=== PATIENT | male | born 1990 | race Caucasian/White ===

== ENCOUNTER 2021-03-23 03:53 | Emergency (ER) | payer OTHER ==
[2021-03-23 04:01] VITALS: RESP 18
[2021-03-23] MEDS ORDERED: SODIUM CHLORIDE 0.9% 1,000 ML IV STA (04:11)
[2021-03-23] MEDS ORDERED: DEXAMETHASONE SOD PHOSPHATE 10 MG/ML 1 ML VIAL IVP STA (04:12)
[2021-03-23] MEDS ORDERED: IPRATROPIUM-ALBUTEROL 3 ML NEB INHALATION STA (04:12)
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
--- NOTE | 2021-03-23 04:48 | XR ---
EXAMINATION TYPE: XR chest 1V DATE OF EXAM: 03/23/2021 COMPARISON: 02/23/2019 HISTORY: Cough TECHNIQUE: Single view FINDINGS: Heart and mediastinum are normal. Lungs are clear. Diaphragm is normal. Bony thorax appears normal. IMPRESSION: Normal chest. No change.
[2021-03-23 05:58] VITALS: BP 119/76; PULSE 72; TEMP 98.3
[2021-03-23 13:54] LABS: VBG PH 7.36 (7.31-7.41)
== END 2021-03-23 05:50 | disposition home or self-care (01) ==
LOC: EC 03:53
DX: T59.811A Toxic effect of smoke, accidental (unintentional), initial encounter (principal)
CPT/HCPCS: 36415; 94640; 82375; 82803; 83605; 71045; 99285; 96374; J1100

== ENCOUNTER → 2021-03-25 | Outpatient (CLI) | payer OTHER ==
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
== END | disposition home or self-care (01) ==
LOC: RADXRMAIN 14:54
PROVIDERS: ATTEND Emergency Medicine
DX: J70.5 Respiratory conditions due to smoke inhalation (principal)
CPT/HCPCS: 71046